=== PATIENT | male | born 1965 | race Caucasian/White ===

== ENCOUNTER → 2020-01-17 | Outpatient (CLI) | payer SELFPAY | LOC: LAB 09:50 | DX: E23.0 Hypopituitarism (principal) ==

== ENCOUNTER → 2020-12-06 | Outpatient (CLI) | payer SELFPAY | LOC: LAB 12:22 | DX: K90.0 Celiac disease (principal) ==

== ENCOUNTER → 2021-05-30 | Outpatient (CLI) | payer SELFPAY | LOC: LAB 08:41 | DX: Z01.89 Encounter for other specified special examinations (principal) ==

== ENCOUNTER → 2022-04-08 | Outpatient (CLI) | payer SELFPAY | LOC: LAB 08:51 | DX: C23 Malignant neoplasm of gallbladder (principal); D35.2 Benign neoplasm of pituitary gland ==

== ENCOUNTER → 2023-05-10 | Outpatient (CLI) | payer SELFPAY | LOC: LAB 08:42 | DX: D35.2 Benign neoplasm of pituitary gland (principal) ==

== ENCOUNTER → 2023-05-12 | Outpatient (CLI) | payer SELFPAY | LOC: LAB 07:29 | DX: C00-D49 Neoplasms (principal) ==